=== PATIENT | female | born 1975 | race Caucasian/White ===

== ENCOUNTER 2016-12-10 10:16 | Emergency (ER) | payer OTHER ==
[~2016-12-10] VITALS: Ht 175.3 cm; Wt 70.3 kg
[2016-12-10 10:30] VITALS: BP 130/81
[2016-12-10] MEDS ORDERED: relafen (10:58)
[2016-12-10] MEDS ORDERED: PRED-220 PO (10:58)
--- NOTE | 2016-12-10 10:58 | PHYS DOC ---
Past History Past Medical History: Fibromyalgia, Migraines, Other Past Surgical History: Alcohol Use: None Drug Use: None Adult General Chief Complaint Chief Complaint: BACK PAIN OR INJURY HPI HPI Patient is a 41-year-old female who is driven to the ED by her with the complaint of back pain. Patient has a history of chronic back pain, a history of "fibromyalgia, Crohn's". She is under the care of a pain management doctor in [place]. In fact, she and her both see this doctor. They return to [place] every month for doctor's visit and to get prescriptions. The patient tells me that she is waiting for her disability determination in December. [facility] [place] [facility] because her works on post. Patient tells me that in 2008, she developed "bulging disks" in her lumbar spine. At the time, she was unable to get any relief with physical therapy, they also tried injections which did not help. She was referred to "manual physical therapy" which consisted of them applying pressure or pounding on her back using a "dog Bernabe". That helped and since then her back pain has been improved. She did not have surgery and in fact refuses to have surgery or injections. Patient tells me that a few days ago she was using a weed whacker and flared up her back. She now has pain on both sides of her back bone from her low back up to her low mid back. It hurts to walk and also her neck feels somewhat stiff. She denies pain down her legs, denies radicular pain. The patient brings a bottle of hydrocodone 7.5/325, #60, that she is prescribed by her pain management doctor in [place]. She still has several in the bottle. She also has been taking naproxen and baclofen as prescribed. Patient did take a course of air or aids for 12 days, about 6 weeks ago, for flare of fibromyalgia. Patient does smoke. Review of Systems Review of Systems Constitutional: Denies fever or chills [] HENT: Denies nasal congestion or sore throat [] Respiratory: Denies cough or shortness of breath [] Cardiovascular: Denies chest pain GI: Denies abdominal pain, nausea, vomiting, bloody stools or diarrhea [] : Denies dysuria or hematuria [] Musculoskeletal: As in history of present illness Integument: Denies rash or skin lesions [] Neurologic: Denies headache, focal weakness or sensory changes [] Physical Exam Physical Exam Constitutional: Well developed, well nourished, no acute distress, non-toxic appearance. Alert, mentating normally. HENT: Normocephalic, atraumatic, bilateral external ears normal, nose normal. [] Eyes: conjunctiva normal, no discharge. [] Neck: Normal range of motion, no stridor. [] Skin: Warm, dry, no erythema, no rash. [] Back: No tenderness, no CVA tenderness. Patient indicates area of pain from lower thoracic through lower lumbar, paraspinous muscles bilaterally, nonradiating. Vertebrae are nontender. Paraspinous muscles are not spasmed. No significant tenderness to palpation. No overlying skin abnormalities. Extremities: No tenderness, no cyanosis, no clubbing, ROM intact, no edema. [] Neurologic: Alert and oriented X 3, normal motor function, normal sensory function, no focal deficits noted. Strength 5 over 5 of proximal and distal lower extremities bilaterally. Normal dorsiflexion of great toes bilaterally. DTRs 2 over 4 both patellar. Current Patient Data Vital Signs Vital Signs Date Time Temp Pulse Resp B/P (MAP) Pulse Ox O2 Delivery O2 Flow Rate FiO2 12/10/16 10:30 97.9 75 16 99 Room Air EKG EKG [] Radiology/Procedures Radiology/Procedures [] Course & Med Decision Making Course & Med Decision Making Pertinent Labs and Imaging studies reviewed. (See chart for details) 41-year-old female with a history of prior back pain and also chronic pain problems including fibromyalgia who presents with a full bottle of hydrocodone 7.5 mg stating it isn't helping at all for this exacerbation of back pain that she attributes to using a weed whacker. Patient and I discussed some options. I recommended that we switch her from naproxen to Relafen for a short time and also give her a short course of steroids. She is agreeable to those suggestions. I explained to her why I am not recommending increasing her already fairly high dose of daily opiates and she understands that. We talked about using ice. I urged her to quit smoking. I advised her to ask her primary care physician for a pain management and physical therapy follow-up here in the local area since she is currently going back to [place] every month. Patient states that she has seen pain management doctors around here and "they all want to do surgery or shots" and she doesn't want either of those. Patient remained stable and unchanged in the ED and was discharged with her driving. [] Dragon Disclaimer Dragon Disclaimer This chart was dictated in whole or in part using Voice Recognition software in a busy, high-work load, and often noisy Emergency Department environment. It may contain unintended and wholly unrecognized errors or omissions. Departure Departure: Impression: Primary Impression: Back pain Additional Impression: Chronic pain Disposition: HOME, SELF-CARE Condition: STABLE Referrals: NON,STAFF (PCP) Patient Instructions: Back Pain, Adult, [id number], Chronic Back Pain Additional Instructions: As we discussed, we will switch you from naproxen to Relafen for a week or 2. Relafen is a stronger anti-inflammatory pain medication. Do not take Relafen and naproxen on the same day. We will try a short course of steroids. You may taper the steroids more quickly , as we discussed, if you are improving. Take your hydrocodone as prescribed for pain as needed. I recommend that you talk to your primary care doctor about possible referral to physical therapy. Ice 15-20 minutes out of every 1-2 hours, or you may try heat, or you may alternate ice and heat. Scripts [relafen] No Conflict Check 500 MG BID for back pain, #30 Prov: DORIAN CONTE MD 12/10/16 Prednisone (PREDNISONE) 10 Mg Tablet 10 MG PO UD for PREDNISONE TAPER, #30 TAB 0 Refills Take 4 tablets by mouth once a day for 3 days, Take 3 tablets by mouth once a day for 3 days, then take 2 tablets by mouth once a day for 3 days, then take 1 tablet by mouth once a day for 3 days. Prov: DORIAN CONTE MD 12/10/16 Problem Qualifiers DORIAN CONTE MD Dec 10, 2016 10:58
== END 2016-12-10 11:10 | disposition home or self-care (01) ==
LOC: ER 10:16
DX: G89.29 Other chronic pain (principal); M54.5 Low back pain; M79.7 Fibromyalgia; G43.909 Migraine, unspecified, not intractable, without status migrainosus; K50.90 Crohn's disease, unspecified, without complications
CPT/HCPCS: 99283